=== PATIENT | female | born 1970 | race Caucasian/White ===

== ENCOUNTER → 2024-03-11 | Outpatient (CLI) | payer BC, SELFPAY ==
[2024-03-11 18:20] LABS: Anion Gap 5 (5-15); BUN 11 mg/dL (7-18); BUN/Creat Ratio 12.1 RATIO (10-20); Calcium,Total 9.4 mg/dL (8.5-10.1); Chloride 103 mmol/L (98-107); Creatinine, Serum 0.91 mg/dL (0.55-1.02); EST Glomerular Filtration Rate 69 mL/min (>60); Est Glom Filt Rate - Afr Amer 83 mL/min (>60); Glucose 92 mg/dL (74-106); Potassium 3.9 mmol/L (3.5-5.1); Sodium Level 138 mmol/L (136-145)
== END | disposition home or self-care (01) ==
LOC: MTLAB 16:34
PROVIDERS: PCP Family Medicine; Referring Provider Urology; Visit Provider Urology
DX: R31.21 Asymptomatic microscopic hematuria (principal)
CPT/HCPCS: 36415; 80048

== ENCOUNTER → 2024-04-02 | Outpatient (CLI) | payer BC, SELFPAY ==
--- NOTE | 2024-04-02 13:09 | CT_ITS ---
STUDY: CT ABDOMEN AND PELVIS WITH AND WITHOUT CONTRAST REASON FOR EXAM: Female, 54 years old. MICROHEMATURIA RADIATION DOSAGE (If Supplied By Facility): CTDIvol = ( 22.86 ) mGy, DLP = ( 3467.27 ) mGycm TECHNIQUE: Transaxial images were obtained from the dome of the diaphragm to the symphysis pubis without oral contrast. 100 CC ISOVUE 300 was administered. Sagittal and coronal images were reconstructed. Individualized dose optimization techniques were used for this CT. COMPARISON: None. FINDINGS: Questionable right breast implant. The visualized lung bases are unremarkable. The visualized portions of the heart are within normal limits. Normal liver. Normal gallbladder and extrahepatic biliary system. Normal spleen. Normal pancreas. Normal bilateral adrenal glands. Normal right kidney. Normal left kidney. Normal visualized stomach. Normal small intestine. Normal colon. The appendix is visualized and appears normal. There is scattered atherosclerotic calcification of the abdominal aorta, without a demonstrated aneurysm. Normal inferior vena cava. There is a small retroperitoneal lymphadenopathy with enlarged nodes no greater than 10mm in the short axis diameter. Distended urinary bladder. There is absence of the uterus consistent with a prior hysterectomy. Normal abdominal wall. Disc space narrowing at the L5-S1 level. CT/CT Abd/Pelvis W/WO Contrast IMPRESSION: Distended urinary bladder. Electronically Signed: Kevin Mendiola MD at 15:17 EDT ,
== END | disposition home or self-care (01) ==
PROVIDERS: PCP Physician Assistant; Referring Provider Urology; Visit Provider Urology
DX: R31.29 Other microscopic hematuria (principal)
CPT/HCPCS: 74178; Q9967

== ENCOUNTER → 2024-12-25 | Outpatient (CLI) | payer BC, SELFPAY ==
[2024-12-25 18:24] LABS: ALB/GLOB Ratio 1.7 RATIO (0.9-2.4); AST(SGOT) 25 U/L (<=31); Alanine Aminotransfer ALT/SGPT 24 U/L (<=34); Albumin, Serum 4.5 g/dL (3.5-5.0); Alkaline Phosphatase 76 U/L (35-104); Anion Gap 14 (5-15); BUN 12 mg/dL (4-19); BUN/Creat Ratio 12.2 RATIO (10-20); Calcium,Total 10.1 mg/dL (7.6-11.0); Carbon Dioxide 22.3 mmol/L (21.0-32.0); Chloride 106 mmol/L (98-108); Creatinine, Serum 1.02 mg/dL (0.70-1.20); EST Glomerular Filtration Rate 66 (>60); Estradiol 13.4 pg/mL; Follicle Stimulating Hormone 42.3 mIU/mL; Free T3 3.4 pg/mL (2.18-3.98); Globulin 2.7 g/dL (2.2-4.2); Glucose 91 mg/dL (70-99); Potassium 3.6 mmol/L (3.3-5.1); Protein, Total 7.2 g/dL (5.9-8.4); Sodium Level 141 mmol/L (133-145); Thyroid Stim Hormone (TSH) 0.315 uIU/mL (0.300-4.200); Total Bilirubin 0.32 mg/dL (0.00-1.30); Vitamin D,25 Hydroxy 30.8 ng/mL (30-100)
[2024-12-27 04:07] LABS: Thyroid Peroxidase AB 13 IU/mL (0-34)
== END | disposition home or self-care (01) ==
PROVIDERS: PCP Physician Assistant; Referring Provider Nurse Practitioner Family; Visit Provider Nurse Practitioner Family
DX: N95.1 Menopausal and female climacteric states (principal)
CPT/HCPCS: 36415; 80053; 82306; 82670; 83001; 84403; 84439; 84443; 84481; 86376

== ENCOUNTER 2025-01-26 21:46 | Emergency (ER) | payer BC, SELFPAY ==
[2025-01-26 21:47] VITALS: BP 143/91; PULSE 107; RESP 15; TEMP 36.2; O2SAT 96; BMI 30.9
--- NOTE | 2025-01-26 22:06 | EX.ED.DYSGE1 ---
HPI History of Present Illness Chief Complaint: General Illness Informant: patient and spouse/S.O. Narrative Narrative: 54-year-old female presenting to the ER because she has not felt well for 2 to 3 weeks. She states this all started when she received some type of steroid injection when she was in [place] for her rheumatoid arthritis, she states it was an attempt to get off of the biologic that she was on for it. She states she developed thrush. She has felt poorly ever since. She been constipated the last couple days, she did a suppository but it did not really help. She has a history of migraines, she states this injection was also supposed to help prevent migraines, so she discontinued her preventative at that time as well, but she is been having frequent migraines and today she is been having 1 all day despite taking her Imitrex which did not help, she tends to get nauseated with her migraines which she has been all day and then when she vomited she was concerned that since she has not had a bowel movement last couple days that she has a bowel obstruction. Was also concerned when she detected that her blood pressure was normal today but her heart rate was elevated at 105. She denies any abdominal pain. She had a history of a hysterectomy in the past but no other abdominal surgeries. No history of a bowel obstruction. She denies any fevers. She had some pain in the right side of her neck with a lump that she felt before that comes and goes quite often. She also states that she has had thrush because of the steroid shot and she was on some type of prescription disc that she has been putting in her mouth 5 times a day that is not enjoyable and she does not think it is helping although she does admit that the mouth pain she had is gone. [facility] Medical History Acute eczema Rheumatoid arthritis GERD (gastroesophageal reflux disease) Pneumonia High cholesterol Hypertension Headache COPD (chronic obstructive pulmonary disease) Chronic bronchitis UTI (urinary tract infection) Home Medications ?Medication ?Instructions ?Recorded ?Last Taken ?Type doxepin 10 mg capsule 10 mg PO QDAY 12/17/24 Unknown History hydroxychloroquine 200 mg tablet 200 mg PO QDAY 12/17/24 Unknown History hydroxyzine HCl 10 mg tablet 10 mg PO TID PRN 12/17/24 Unknown History lisinopril 5 mg tablet 5 mg PO QDAY 12/17/24 Unknown History omeprazole 20 mg capsule,delayed 20 mg PO QDAY 12/17/24 Unknown History release rosuvastatin 5 mg tablet 5 mg PO QDAY 12/17/24 Unknown History sumatriptan succinate 50 mg tablet 50 mg PO ONCE 12/17/24 Unknown History tofacitinib 11 mg tablet,extended 11 mg PO QDAY 12/17/24 Unknown History release 24 hr (Xeljanz XR) tolterodine 2 mg tablet 2 mg PO Q12H 12/17/24 Unknown History topiramate 25 mg capsule,extended 25 mg PO QDAY 12/17/24 Unknown History release 24 hr estradiol 0.025 mg/24 hr 1 patch transdermal 2XW #8 ea 01/08/25 Unknown Rx semiweekly transdermal patch spironolactone 50 mg tablet 50 mg PO QDAY #30 tabs 01/08/25 Unknown Rx nystatin 100,000 unit/mL oral 100,000 unit PO TID 2 weeks #60 mL 01/26/25 Unknown Rx suspension Allergy/AdvReac Type Severity Reaction Status Date / Time adalimumab (From Humira) Allergy Severe Swelling Verified 01/26/25 21:50 methotrexate Allergy Severe Vomiting Verified 01/26/25 21:50 Family History Father Colon cancer CVA (cerebral vascular accident) Mother Osteoporosis Dementia Surgical History History of breast lift H/O dilation and curettage History of tonsillectomy H/O: hysterectomy Social History household members: spouse housing: house Smoking Status: Current every day smoker tobacco type: cigarettes alcohol intake: current alcohol intake frequency: holidays/special occasions only substance use type: does not use and marijuana what type of physical activity do you participate in: none ROS ROS ED Constitutional Constitutional ED: Reports malaise; Denies chills or fever(s) Eyes Eyes: Denies change in vision or diplopia ENT ENT ED: Reports other Details: thrush since steroid shot - mouth/tongue pain resolved ; Denies ear pain, rhinorrhea or sore throat Cardiovascular Cardiovascular: Denies chest pain or palpitations Respiratory/Chest Respiratory/Chest: Denies cough or dyspnea Gastrointestinal Gastrointestinal: Reports constipation, nausea and vomiting; Denies abdominal pain or diarrhea Genitourinary Genitourinary ED: Denies dysuria or hematuria Musculoskeletal Musculoskeletal: Reports arthralgias and neck pain; Denies back pain Integumentary Denies abscess or rash Neurologic Neurologic: Reports headache(s); Denies paresthesias or weakness Psychiatric Psychiatric: Denies suicidal thoughts EXAM Physical Exam Const Vital Signs: 01/26/25 21:47 01/26/25 22:02 Temperature 97.1 F L Temperature Source Temporal Pulse Rate 107 H Respiratory Rate 15 Respiratory Effort Normal Non-Labored Respiratory Pattern Normal Blood Pressure 143/91 H Blood Pressure Mean 108 Pulse Ox 96 Oxygen Delivery Method Room Air Positive well nourished and well developed General Appearance ED: well developed and NAD HEENT Reports moist mucous membranes HEENT Narrative: Mild thrush on tongue that scrapes off. No erythema, bleeding, oral lesions otherwise. normocephalic and atraumatic Eyes PERRL and EOMs intact bilaterally Neck full ROM, no lymphadenopathy and supple General: Negative for tenderness Resp normal respiratory effort and clear to auscultation bilaterally Cardio regular rate, regular rhythm and no murmurs Rate: Negative for tachycardic GI non-tender and non-distended GI Narrative: Benign abdominal exam with normal bowel sounds and no tenderness. Auscultation: normoactive bowel sounds Palpation: soft Back/Spine no CVA tenderness General Back: other FROM Extremity normal to inspection General Extremety ED: Negative for edema, pulses abnormal or tenderness General Extremity: Negative for edema or pulses abnormal Neuro oriented x3, CN's II-XII intact bilaterally, no sensory deficits noted and gait normal Sensorium / Orientation: awake and alert Motor Exam: strength 5/5 throughout Skin no rashes or lesions noted and no wounds MDM MDM MDM Narrative Medical decision making narrative: Patient has multiple somatic complaints unclear how these are all related to each other or the injection that she received that I do not have records of a month ago. I did give her Benadryl, Toradol, Reglan for her migraine, and on reexamination her headache is completely resolved. She has been doing clotrimazole atrocious for her thrush, she feels like it is still there so going to put her on nystatin. Labs show mild hyponatremia, she does not believe it did for that, the reason is unclear, renal function is normal I did give her a liter of normal saline, this should be rechecked in the near future, and her urinalysis showed some soft signs of infection. She does not have urinary symptoms, so I do not think this need to be treated but send for culture. We offered an enema, she declined, we discussed ways to treat constipation at home, she has MiraLAX and we discussed how to use that. Follow-up advised. Lab Data Attestation: I reviewed the patient's lab results. Labs: Laboratory Results - last 24 hr 01/26/25 01/26/25 01/26/25 22:13 22:13 22:23 WBC Cancelled Corrected WBC Cancelled RBC Cancelled Hgb Cancelled Hct Cancelled MCV Cancelled MCH Cancelled MCHC Cancelled RDW Std Deviation Cancelled RDW Coeff of Jose Alejandro Cancelled Plt Count Cancelled MPV Cancelled Immature Gran % (Auto) Cancelled Neut % (Auto) Cancelled Lymph % (Auto) Cancelled [place] % (Auto) Cancelled Eos % (Auto) Cancelled Baso % (Auto) Cancelled Absolute Neuts (auto) Cancelled Absolute Lymphs (auto) Cancelled Total Counted Cancelled Neutrophils % (Manual) Cancelled Band Neutrophils % Cancelled Lymphocytes % (Manual) Cancelled Monocytes % (Manual) Cancelled Eosinophils % (Manual) Cancelled Basophils % (Manual) Cancelled Metamyelocytes % Cancelled Myelocytes % Cancelled Promyelocytes % Cancelled Blast Cells % Cancelled Plasma Cell % (Manual) Cancelled Other Cells % Cancelled Nucleated RBC % Cancelled Nucleated RBCs/100 WBC Cancelled Differential Comment Cancelled Diff Path Review Cancelled Hypersegmented Neuts Cancelled Atypical Lymphocytes Cancelled Reactive Lymphocytes Cancelled Smudge Cells Cancelled Toxic Granulation Cancelled Toxic Vacuolation Cancelled Dohle Bodies Cancelled Lobito Rods Cancelled Platelet Estimate Cancelled Plt Morphology Comment Cancelled RBC Morphology Cancelled Cancelled Polychromasia Cancelled Hypochromasia Cancelled Basophilic Stippling Cancelled Anisocytosis Cancelled Microcytosis Cancelled Macrocytosis Cancelled Spherocytes Cancelled Sickle Cells Cancelled Target Cells Cancelled Tear Drop Cells Cancelled Ovalocytes Cancelled Stomatocytes Cancelled Pardo-Oark Bodies Cancelled Bulger Cells Cancelled Bite Cells Cancelled Crenated Cell Cancelled Acanthocytes (Spur) Cancelled Rouleaux Cancelled Schistocytes Cancelled Sodium 129 L Potassium 4.1 Chloride 98 Carbon Dioxide 17.0 L Anion Gap 14 BUN 17 Creatinine 0.91 Estim Creat Clear Calc 71.32 Est GFR (MDRD) Non-Af 75 BUN/Creatinine Ratio 18.6 Glucose 119 H Calcium 10.0 Urine Color Yellow Urine Clarity Sl. Cloudy Urine pH 6.0 Ur Specific [place] 1.030 Urine Protein 30 H Urine Glucose (UA) Normal Urine Ketones Negative Urine Occult Blood 50 H Urine Nitrite Negative Urine Bilirubin 1 H Urine Urobilinogen Normal Ur Leukocyte Esterase 25 H Urine RBC 5-10 SEEN Urine WBC 25-50 SEEN Ur Squamous Epith Cells 10-25 SEEN Urine Bacteria 4+ Hyaline Casts 10-25 SEEN Fine Granular Casts 5-10 SEEN Urine Mucus 3+ 01/26/25 22:50 WBC 8.7 Corrected WBC RBC 4.51 Hgb 13.9 Hct 40.4 MCV 89.6 MCH 30.8 MCHC 34.4 RDW Std Deviation 39.9 RDW Coeff of Jose Alejandro 12.2 Plt Count 219 MPV 9.1 Immature Gran % (Auto) 0.300 Neut % (Auto) 75.8 H Lymph % (Auto) 15.6 L [place] % (Auto) 7.6 Eos % (Auto) 0.5 Baso % (Auto) 0.2 Absolute Neuts (auto) 6.6 Absolute Lymphs (auto) 1.36 Total Counted Neutrophils % (Manual) Band Neutrophils % Lymphocytes % (Manual) Monocytes % (Manual) Eosinophils % (Manual) Basophils % (Manual) Metamyelocytes % Myelocytes % Promyelocytes % Blast Cells % Plasma Cell % (Manual) Other Cells % Nucleated RBC % 0 Nucleated RBCs/100 WBC Differential Comment Diff Path Review Hypersegmented Neuts Atypical Lymphocytes Reactive Lymphocytes Smudge Cells Toxic Granulation Toxic Vacuolation Dohle Bodies Lobito Rods Platelet Estimate Plt Morphology Comment RBC Morphology Polychromasia Hypochromasia Basophilic Stippling Anisocytosis Microcytosis Macrocytosis Spherocytes Sickle Cells Target Cells Tear Drop Cells Ovalocytes Stomatocytes Pardo-Oark Bodies Jack Cells Bite Cells Crenated Cell Acanthocytes (Spur) Rouleaux Schistocytes Sodium Potassium Chloride Carbon Dioxide Anion Gap BUN Creatinine Estim Creat Clear Calc Est GFR (MDRD) Non-Af BUN/Creatinine Ratio Glucose Calcium Urine Color Urine Clarity Urine pH Ur Specific [place] Urine Protein Urine Glucose (UA) Urine Ketones Urine Occult Blood Urine Nitrite Urine Bilirubin Urine Urobilinogen Ur Leukocyte Esterase Urine RBC Urine WBC Ur Squamous Epith Cells Urine Bacteria Hyaline Casts Fine Granular Casts Urine Mucus Discharge Plan Triage Chief Complaint: General Illness ED Provider: Karlos Gusman Dx/Rx/DC Orders Clinical Impression: Migraine headache, Constipation, Hyponatremia, Malaise, Candidiasis of mouth Instructions: ED Hyponatremia, ED, Migraine (Classical) Prescriptions: New nystatin 100,000 unit/mL suspension 100,000 unit PO TID 14 Days Qty: 60 0RF Rx Instructions: administer 1/2 of dose in each side of the mouth No Action Xeljanz XR 11 mg tablet extended release 24 hr 11 mg PO QDAY hydroxychloroquine 200 mg tablet 200 mg PO QDAY omeprazole 20 mg capsule,delayed release(DR/EC) 20 mg PO QDAY lisinopril 5 mg tablet 5 mg PO QDAY rosuvastatin 5 mg tablet 5 mg PO QDAY tolterodine 2 mg tablet 2 mg PO Q12H sumatriptan succinate 50 mg tablet 50 mg PO ONCE topiramate 25 mg capsule,extended release 24hr 25 mg PO QDAY hydroxyzine HCl 10 mg tablet 10 mg PO TID PRN doxepin 10 mg capsule 10 mg PO QDAY estradiol 0.025 mg/24 hr patch semiweekly 1 patch transdermal 2XW Qty: 8 2RF Rx Instructions: apply 1 patch for 3 days alternating with 1 patch for 4 days each week spironolactone 50 mg tablet 50 mg PO QDAY Qty: 30 2RF Primary Care Provider: Ismael Lei Referrals: Ismael Lei PA [Primary Care Provider] - As soon as possible Print Language: Swedish Disposition Disposition: Home, Self Care
[2025-01-26] MEDS: DiphenhydrAMINE 50 MG/ML Syringe 25 MG IV (22:16)
[2025-01-26] MEDS: Metoclopramide 10 MG/2 ML Vial 5 MG IV (22:17)
[2025-01-26] MEDS: Ketorolac 30 MG/ML Syringe IV (22:17)
[2025-01-26] MEDS: 0.9% Normal Saline (1000mL) 1,000 ML 999 ML IV (22:18)
[2025-01-26 22:34] LABS: Color, Urine Yellow (Yellow); Glucose, Dipstick Normal (Normal); Ketone-Dipstick Negative (Negative); Leukocyte Esterase-Dipstick 25 /ul (Negative); Nitrite-Dipstick Negative (Negative); Occult Blood-Urine 50 /ul (Negative); Protein-Dipstick 30 mg/dl (Negative); Urine Clarity Sl. Cloudy (Clear); Urine Urobilinogen Normal (Normal)
[2025-01-26 22:46] LABS: Urine Bilirubin Dipstick 1 mg/dL (Negative)
[2025-01-26 22:58] LABS: Absolute Lymphocyte Count 1.36 X10^3/uL (0.83-4.51); Absolute Neutrophil Count 6.6 X10^3/uL (2.0-7.7); Basophil# 0.02 X10^3/uL; Basophil% 0.2 % (0-1); Eosinophil# 0.04 X10^3/uL; Eosinophils% 0.5 % (0-5); Hematocrit 40.4 % (37-47); Hemoglobin 13.9 g/dL (12.0-15.0); Lymphocyte # 1.36 X10^3/ul (0.83-4.51); Lymphocyte % 15.6 % (19-41); Mean Corp Hgb Conc 34.4 g/dL (32-36); Mean Corpuscular Hgb 30.8 pg (27.0-32.0); Mean Corpuscular Volume 89.6 fL (81-99); Mean Platelet Vol. 9.1 fl (6.2-12.0); Monocyte# 0.66 X10^3/uL; Monocyte% 7.6 % (0-10); NRBC Flagged by Analyzer 0 % (0-5); Neutrophil # 6.62 X10^3/uL (2.7-7.7); Neutrophil % 75.8 % (47-70); Platelet Count 219 K/mm3 (150-450); RBC Distribution Width CV 12.2 % (11.6-14.6); RBC Distribution Width SD 39.9 fl (35.1-43.9); Red Blood Count 4.51 M/mm3 (4.2-5.4); White Blood Count 8.7 K/mm3 (4.4-11.0)
[2025-01-26 23:01] LABS: White Blood Cells 25-50 SEEN /hpf (0-5)
[2025-01-26 23:02] LABS: Bacteria 4+ /hpf (None Seen); Fine Granular Cast- Urine 5-10 SEEN /lpf (0-5); Hyaline Cast 10-25 SEEN /lpf (0-5); Mucous, Urine 3+ /hpf (<or=2+); Red Blood Cells-Urine 5-10 SEEN /hpf (0-5); Squamous Epithelial Cells - UA 10-25 SEEN /hpf (5-10)
[2025-01-26 23:18] LABS: Anion Gap 14 (5-15); BUN 17 mg/dL (4-19); BUN/Creat Ratio 18.6 RATIO (10-20); Chloride 98 mmol/L (98-108); Creatinine, Serum 0.91 mg/dL (0.70-1.20); EST Glomerular Filtration Rate 75 (>60); Estimated Creatinine Clearance 71.32 ml/min (50-250); Glucose 119 mg/dL (70-99); Potassium 4.1 mmol/L (3.3-5.1); Sodium Level 129 mmol/L (133-145)
== END 2025-01-27 00:06 | disposition home or self-care (01) ==
PROVIDERS: Emergency Provider Emergency Medicine; PCP Physician Assistant; Visit Provider Emergency Medicine
DX: G43.909 Migraine, unspecified, not intractable, without status migrainosus (principal); J44.9 Chronic obstructive pulmonary disease, unspecified; E87.1 Hypo-osmolality and hyponatremia; F17.210 Nicotine dependence, cigarettes, uncomplicated; I10 Essential (primary) hypertension; B37.0 Candidal stomatitis; Z90.710 Acquired absence of both cervix and uterus; E78.00 Pure hypercholesterolemia, unspecified; K59.00 Constipation, unspecified; R53.81 Other malaise; Z79.899 Other long term (current) drug therapy; K21.9 Gastro-esophageal reflux disease without esophagitis
CPT/HCPCS: 80048; 81001; 85025; 87086; 87088; 96361; 96374; 96375; 99283; A4216

== ENCOUNTER → 2025-02-05 | Outpatient (CLI) | payer BC, SELFPAY ==
[2025-02-05 12:45] LABS: HIV Nonreactive (Nonreactive); Syphilis Antibodies Nonreactive (Nonreactive)
== END | disposition home or self-care (01) ==
PROVIDERS: PCP Physician Assistant; Referring Provider Nurse Practitioner Family; Visit Provider Nurse Practitioner Family
DX: Z11.3 Encounter for screening for infections with a predominantly sexual mode of transmission (principal)
CPT/HCPCS: 36415; 86695; 86696; 86703; 86780